=== PATIENT | female | born 1940 | race Caucasian/White ===

== ENCOUNTER 2018-11-14 07:58 | Observation (INO) ==
[~2018-11-14 07:58] MED LIST: LIDOCAINE W/ SODIUM BICARB 0.5 ML SYR ONE; LIDOCAINE W/ SODIUM BICARB 0.5 ML SYR SUBD PRN; Lactated Ringers 1,000 ML PRIMARY IV ONE; Nasal Sanitizer POPSWAB ampule 3 AMP (Nozin) PREOP DOSE ENOS SCH; ceFAZolin Inj 2gm (Premix) 2 GM/50 ML BAG IV ONE
[2018-11-14] MEDS: Lactated Ringers 1,000 ML PRIMARY IV SCH ×4 (08:20→18:00)
[2018-11-14] MEDS ORDERED: Sodium Chloride 0.9% vial 30 ML ONE (08:42)
[2018-11-14] MEDS ORDERED: Iothalamate Meglumine 30 ML VIAL IV ONE (08:42)
[2018-11-14] MEDS ORDERED: BUPIVACAINE 0.25% W/ EPI - 10 ML VIAL ONE (08:42)
[2018-11-14] MEDS ORDERED: MIDAZOLAM 5 MG/1 ML ONE (09:05)
[2018-11-14] MEDS ORDERED: KETAMINE 100 MG/1 ML - 5 ML ONE (09:05)
[2018-11-14] MEDS ORDERED: PROPOFOL 10 MG/1 ML (200 MG/20 ML) VIAL IV ONE (09:05)
[2018-11-14] MEDS ORDERED: LIDOCAINE MPF 2% - 5 ML (20 MG/1 ML) ONE (09:05)
[2018-11-14] MEDS ORDERED: fentaNYL Inj 250 MCG/5 ML VIAL ONE (09:05)
[2018-11-14] MEDS ORDERED: ROCURONIUM 10 MG/1 ML - 5 ML VIAL IVP ONE (09:06)
[2018-11-14] MEDS ORDERED: Acetaminophen 1000mg Inj 1,000 MG/100 ML VIAL IV ONE (09:48)
[2018-11-14] MEDS ORDERED: SUFENTANIL 50 MCG/1 ML ONE (10:24)
[2018-11-14] MEDS ORDERED: Lactated Ringers 1,000 ML PRIMARY IV ONE (10:29)
[2018-11-14] MEDS ORDERED: KETOROLAC 30 MG/1 ML VIAL ONE (10:38)
[2018-11-14] MEDS ORDERED: SUGAMMADEX SODIUM 200 MG/2 ML VIAL IV ONE (10:43)
[2018-11-14] MEDS ORDERED: Nalbuphine Inj 20 MG/ML Ampule ONE (11:01)
[2018-11-14] MEDS ORDERED: ONDANSETRON 4 MG/2 ML VIAL IVP PRN (11:08)
[2018-11-14] MEDS ORDERED: oxyCODONE IR Tab 5 MG TAB PO PRN (11:08)
[2018-11-14] MEDS ORDERED: MORPHINE SULFATE 2 MG/1 ML IVP PRN (11:08)
[2018-11-14] MEDS ORDERED: HYDROcodone-APAP 5 MG -325 MG TABLET PO PRN (11:08)
[2018-11-14] MEDS ORDERED: Lactated Ringers 1,000 ML PRIMARY IV SCH (11:15)
[2018-11-14] MEDS ORDERED: ONDANSETRON 4 MG/2 ML VIAL ONE (11:34)
[2018-11-14] MEDS ORDERED: Prochlorperazine Edisylate Inj 10mg/2ml vial IVP PRN (13:48)
[2018-11-14] MEDS ORDERED: SCOPOLAMINE HYDROBROMIDE 1.5 MG - 1 EACH PATCH TRANSDERM ONE (13:52)
[2018-11-14] MEDS ORDERED: SCOPOLAMINE HYDROBROMIDE 1.5 MG - 1 EACH PATCH TRANSDERM SCH (14:00)
[2018-11-14] MEDS ORDERED: Ondansetron ODT Tab 8 MG TAB PO PRN (21:48)
[2018-11-15 07:39] VITALS: RESP 18
[2018-11-15 12:11] VITALS: BP 151/69; TEMP 98.9; O2SAT 94
== END 2018-11-15 13:17 | disposition home or self-care (01) ==
LOC: OR 07:58 → MED/SURG 07:58 → OPS 07:59
PROVIDERS: ADMIT Surgery; ATTEND Surgery